=== PATIENT | male | born 1975 | race Hispanic/Latino ===

== ENCOUNTER 2018-02-25 09:19 | Emergency (ER) | payer OTHER ==
[2018-02-25 09:24] VITALS: BMI 26.3
[2018-02-25 09:25] VITALS: BP 144/99; PULSE 96; RESP 20; TEMP 99.5; O2SAT 97
[2018-02-25] MEDS ORDERED: Thiamine 100 mg/ml Inj IM ONE (09:50)
[2018-02-25] MEDS ORDERED: Sodium Chloride 0.9% 1,000 ML IV STA (09:50)
[2018-02-25 10:16] LABS: BASO # 0.2 K/uL (0.0-0.2); BASO % 2.5 % (0.0-2.0); EOS % 0.5 % (0.0-4.0); HEMOGLOBIN 16.4 g/dL (12.0-18.0); LYMPH # 2.7 K/uL (1.0-4.3); LYMPH % 40.9 % (20.0-40.0); MEAN CELL VOLUME 95.8 fl (80.0-94.0); MEAN CORPUSCULAR HEMOGLOBIN 33.1 pg (27.0-31.0); MEAN CORPUSCULAR HGB CONC 34.5 g/dL (33.0-37.0); MEAN PLATELET VOLUME 6.7 fl (7.2-11.7); MONO # 0.8 K/uL (0.0-0.8); MONO % 11.7 % (0.0-10.0); NEUT # 2.9 K/uL (1.8-7.0); NEUT % 44.4 % (50.0-75.0); NRBC % 0.5 % (0.0-0.0); RBC 4.95 Mil/uL (4.40-5.90); RED CELL DISTRIBUTION WIDTH 13.7 % (11.5-14.5); WHITE BLOOD COUNT 6.5 K/uL (4.8-10.8)
[2018-02-25 10:21] LABS: BLOOD UREA NITROGEN 12 mg/dl (9-20); CALCIUM 8.6 mg/dL (8.4-10.2); GFR NON-AFRICAN AMERICAN > 60
--- NOTE | 2018-02-25 10:52 | ED PDOC ---
HPI: Psych/Substance Abuse Time Seen by Provider: 02/25/18 09:32 Chief Complaint (Nursing): Alcohol Ingestion Chief Complaint (Provider): alcohol use History Per: Patient History/Exam Limitations: no limitations Current Symptoms Are (Timing): Still Present Modifying Factor(s): Alcohol Severity: Moderate Associated Symptoms: Depression. denies: Suicidal Thoughts, Suicidal Plan Involuntary Hold By: Emergency Physician Additional Complaint(s): 42yo male states has been drinking vodka daily due to depression over ill father. States drinking ongoing for several months, notes depression over father but he denies suicidal thoughts himself, suicide attempt, self harm or drug use. Admits to sleeplessness and stress over father. Denies prior psychiatric history. States has family support, mother alive and siblings. Past Medical History Reviewed: Historical Data, Nursing Documentation, Vital Signs Vital Signs: Last Vital Signs Temp 99.5 F 02/25/18 09:24 Pulse 96 H 02/25/18 09:24 Resp 20 02/25/18 09:24 BP 144/99 H 02/25/18 09:24 Pulse Ox 97 02/25/18 09:24 - Medical History PMH: No Chronic Diseases Denies: Chronic Kidney Disease - Surgical History Surgical History: No Surg Hx - Family History Family History: States: Unknown Family Hx - Living Arrangements Living Arrangements: With Family - Social History Alcohol: > 2 Drinks/Day - Allergies Allergies/Adverse Reactions: Allergies Allergy/AdvReac Type Severity Reaction Status Date / Time No Known Allergies Allergy Verified 02/25/18 09:43 Review of Systems ROS Statement: Except As Marked, All Systems Reviewed And Found Negative Cardiovascular: Negative for: Chest Pain Respiratory: Negative for: Shortness of Breath Gastrointestinal: Negative for: Abdominal Pain Genitourinary Male: Negative for: Incontinence Musculoskeletal: Negative for: Neck Pain, Back Pain Neurological: Negative for: Weakness, Numbness, Headache, Dizziness Psych: Positive for: Anxiety, Depression, Other (insomnia). Negative for: Suicidal ideation Physical Exam - Reviewed Nursing Documentation Reviewed: Yes Vital Signs Reviewed: Yes - Physical Exam Appears: Positive for: Non-toxic (+AOB but clear speech and conversant) Head Exam: Positive for: ATRAUMATIC, NORMAL INSPECTION, NORMOCEPHALIC Skin: Positive for: Normal Color, Warm, DRY Eye Exam: Positive for: EOMI, Normal appearance, PERRL ENT: Positive for: Normal ENT Inspection Neck: Positive for: Normal, Painless ROM Cardiovascular/Chest: Positive for: Regular Rate, Rhythm Respiratory: Positive for: CNT, Normal Breath Sounds Gastrointestinal/Abdominal: Positive for: Soft. Negative for: Tenderness Back: Negative for: L CVA Tenderness, R CVA Tenderness Extremity: Positive for: Normal ROM Neurologic/Psych: Positive for: Alert, Oriented, Mood/Affect (AOB but clear speech and fair insight cooperative initially). Negative for: Motor/Sensory Deficits, Facial Droop - Laboratory Results Result Diagrams: 02/25/18 09:56 02/25/18 09:56 - ECG O2 Sat by Pulse Oximetry: 97 Medical Decision Making Medical Decision Making: monitor in ED for clinical sobriety patient offered crisis eval for referral to therapy or psychiatrist but refused. States "im a strong alfred and can handle this, I dont need medication" labs reviewed, clinically unremarkable 1130am remains awake and alert, speech nonpressured and conversant, friend arrived to accompany home for his safety, hes not driving. Disposition - Clinical Impression Clinical Impression: Alcohol abuse - Patient ED Disposition Is Patient to be Admitted: No Counseled Patient/Family Regarding: Studies Performed, Diagnosis, Need For Followup - Disposition Referrals: Cruz Feliz MD [Staff Provider] - Disposition: Routine/Home Disposition Time: 11:55 Condition: STABLE Additional Instructions: Followup with your doctor for further testing and treatment. Return to ER for any concern for self. Instructions: Alcohol Abuse and Alcoholism (DC), Effects of Alcohol on Your Health, Stress Forms: CustomMade (Telugu)
== END 2018-02-25 11:49 | disposition home or self-care (01) ==
LOC: H.ER 09:19
DX: F10.10 Alcohol abuse, uncomplicated (principal)
CPT/HCPCS: 80048; 82948; 85025; 96360; 96372; 99284; J3411; J7030

== ENCOUNTER 2018-07-09 23:07 | Emergency (ER) | payer OTHER ==
[2018-07-09 23:07] VITALS: BMI 26.3
[2018-07-09 23:16] VITALS: BP 127/90; PULSE 87; RESP 18; TEMP 98; O2SAT 99
--- NOTE | 2018-07-10 00:14 | ED PDOC ---
HPI: Psych/Substance Abuse Time Seen by Provider: 07/09/18 23:31 Chief Complaint (Nursing): Alcohol Ingestion Chief Complaint (Provider): Alcohol Ingestion ED Caveat: Intoxicated History Per: Patient History/Exam Limitations: intoxication Modifying Factor(s): Alcohol Additional Complaint(s): 43 y/o male was brought to the ED by EMS for alcohol intoxication. Patient was found intoxicated. Patient admits to drinking but is answering all questions. Denies any medical complaints at this time. Past Medical History Vital Signs: Last Vital Signs Temp 98 F 07/09/18 23:13 Pulse 87 07/09/18 23:13 Resp 18 07/09/18 23:13 BP 127/90 07/09/18 23:13 Pulse Ox 99 07/09/18 23:13 - Medical History PMH: Denies: Chronic Kidney Disease - Family History Family History: States: Unknown Family Hx - Immunization History Hx Tetanus Toxoid Vaccination: No Hx Influenza Vaccination: No Hx Pneumococcal Vaccination: No - Allergies Allergies/Adverse Reactions: Allergies Allergy/AdvReac Type Severity Reaction Status Date / Time No Known Allergies Allergy Verified 07/09/18 23:13 Review of Systems Review Of Systems: ROS cannot be obtained secondary to pt's inabilty to answer questions. Physical Exam - Reviewed Nursing Documentation Reviewed: Yes Vital Signs Reviewed: Yes - Physical Exam Appears: Positive for: Well, Non-toxic, No Acute Distress Head Exam: Positive for: ATRAUMATIC, NORMAL INSPECTION, NORMOCEPHALIC Skin: Positive for: Normal Color, Warm, DRY Eye Exam: Positive for: EOMI, Normal appearance, PERRL Neck: Positive for: Normal, Painless ROM Cardiovascular/Chest: Positive for: Regular Rate, Rhythm. Negative for: Murmur Respiratory: Positive for: Normal Breath Sounds. Negative for: Respiratory Distress Gastrointestinal/Abdominal: Positive for: Normal Exam, Soft. Negative for: Tenderness Back: Positive for: Normal Inspection Extremity: Positive for: Normal ROM. Negative for: Pedal Edema, Deformity Neurologic/Psych: Positive for: Alert, Oriented, Gait (unsteady). Negative for: Motor/Sensory Deficits, Aphasia (slurred speech) - ECG O2 Sat by Pulse Oximetry: 99 (RA) Pulse Ox Interpretation: Normal - Progress Re-evaluation Time: 01:00 Condition: Re-examined, Improved Medical Decision Making Medical Decision Making: Time: 23:31 Initial Impression: alcohol intoxication Initial Plan: --Observe --Reassess Scribe Attestation: Documented by Rosales Gonzalez acting as a scribe for Anai Almanza MD. Provider Scribe Attestation: All medical record entries made by the Scribe were at my direction and personally dictated by me. I have reviewed the chart and agree that the record accurately reflects my personal performance of the history, physical exam, medical decision making, and the department course for this patient. I have also personally directed, reviewed, and agree with the discharge instructions and disposition. Disposition - Clinical Impression Clinical Impression: Alcohol abuse with intoxication - Patient ED Disposition Is Patient to be Admitted: No Doctor Will See Patient In The: Office Counseled Patient/Family Regarding: Studies Performed, Diagnosis, Need For Followup - Disposition Disposition: Routine/Home Disposition Time: 01:00 Condition: IMPROVED Additional Instructions: MARLI MAYBERRY, thank you for letting us take care of you today. Your provider was Anai Almanza MD and you were treated for ETOH. The emergency medical care you received today was directed at your acute symptoms. If you were pres cribed any medication, please fill it and take as directed. It may take several days for your symptoms to resolve. Return to the Emergency Department if your symptoms worsen, do not improve, or if you have any other problems. Please contact your doctor or call one of the physicians/clinics you have been referred to that are listed on the Patient Visit Information form that is included in your discharge packet. Bring any paperwork you were given at discharge with you along with any medications you are taking to your follow up visit. Our treatment cannot replace ongoing medical care by a primary care provider outside of the emergency department. Thank you for allowing the [facility] team to be part of your care today. If you had an X-Ray or CT scan: A Radiologist will review the ED reading if any change in treatment is needed we will contact you. If you had a blood, urine, or wound culture: It will take several days for the results, if any change in treatment is needed we will contact you. If you had an STI test: It will take 48 hours for the results. Please call after 1 week if you have not heard back. Instructions: Alcohol Use - When Is Drinking a Problem?
== END 2018-07-10 00:42 | disposition home or self-care (01) ==
LOC: H.ER 23:07
DX: F10.129 Alcohol abuse with intoxication, unspecified (principal)